=== PATIENT | male | born 1965 | race Caucasian/White ===

== ENCOUNTER 2020-05-05 09:46 | Outpatient (CLI) | payer OTHER, SELFPAY ==
--- NOTE | ~2020-05-05 | XR_ITS ---
EXAMINATION: XR foot LT min 3V DATE: 05/05/2020 10:08 INDICATION: 2 months of left heel pain with walking TECHNIQUE: Dorsoplantar, two oblique and lateral views of the left foot were obtained. COMPARISON: None. FINDINGS: Bone alignment is normal. No fracture. Mild osteoarthritis at the first metatarsophalangeal joint. Re maining joint spaces are normal. No cortical erosions or periosteal reaction. Small to moderate-sized plantar calcaneal spur. Soft tissues are unremarkable. No left ankle joint effusion. IMPRESSION: 1. Small to moderate-sized plantar calcaneal spur. 2. Mild osteoarthritis at the first metatarsophalangeal joint. Reviewed, dictated and finalized at location A.
== END 2020-05-05 09:47 | disposition home or self-care (01) ==
PROVIDERS: PCP Family Medicine; Visit Provider Family Medicine
DX: M79.672 Pain in left foot (principal); M77.32 Calcaneal spur, left foot; M19.072 Primary osteoarthritis, left ankle and foot
CPT/HCPCS: 73630

== ENCOUNTER 2020-07-14 07:03 | Outpatient (CLI) | payer OTHER, SELFPAY ==
--- NOTE | ~2020-07-14 | XR_ITS ---
EXAMINATION: XR shoulder RT min 2V INDICATION: Right shoulder pain TECHNIQUE: Four views of the right shoulder are submitted. COMPARISON: None FINDINGS: Normal alignment. No fracture. There is mild glenohumeral and acromioclavicular joint osteo arthritis. Soft tissues are unremarkable. IMPRESSION: 1. No acute osseous abnormality. Reviewed, dictated and finalized at location A. INATION CLERK
--- NOTE | ~2020-07-14 | XR_ITS ---
EXAMINATION: XR knee RT min 4V DATE: 07/14/2020 07:37 INDICATION: Right knee pain TECHNIQUE: Four views of the right knee were obtained. COMPARISON: 06/14/2004 FINDINGS: Alignment is normal. No fracture or osteochondral lesion. Joint spaces are normal with no e rosions. There is subtle chondrocalcinosis of the menisci. Soft tissues are unremarkable. IMPRESSION: 1. Subtle chondrocalcinosis of the menisci without acute osseous abnormality. Reviewed, dictated and finalized at location A. WORK FEEDER
--- NOTE | ~2020-07-14 | XR_ITS ---
EXAMINATION: XR knee LT min 4V DATE: 07/14/2020 07:37 INDICATION: Left knee pain TECHNIQUE: Four views of the left knee were obtained. COMPARISON: None. FINDINGS: Alignment is normal. No fracture or osteochondral lesion. Joint spaces are normal with no e rosions. No joint effusion/synovitis. Soft tissues are unremarkable. IMPRESSION: 1. No acute osseous abnormality. Reviewed, dictated and finalized at location A. ER/WAITRESS TAVERN
== END 2020-07-14 07:04 | disposition home or self-care (01) ==
LOC: ANHIMG 07:09
PROVIDERS: PCP Family Medicine; Visit Provider Family Medicine
DX: M25.511 Pain in right shoulder (principal); M25.561 Pain in right knee; M25.562 Pain in left knee; M11.261 Other chondrocalcinosis, right knee
CPT/HCPCS: 73030; 73564

== ENCOUNTER 2020-09-13 16:30 | Outpatient (CLI) | payer OTHER, SELFPAY | END 2020-09-13 16:31 | disposition home or self-care (01) | LOC: ANHCOVIDVC 16:30 | PROVIDERS: PCP Family Medicine | DX: Z23 Encounter for immunization (principal) | CPT/HCPCS: 0001A; 91300 ==

== ENCOUNTER 2020-10-04 16:32 | Outpatient (CLI) | payer OTHER, SELFPAY | END 2020-10-04 16:33 | disposition home or self-care (01) | LOC: ANHCOVIDVC 16:32 | PROVIDERS: PCP Family Medicine | DX: Z23 Encounter for immunization (principal) | CPT/HCPCS: 0002A; 91300 ==

== ENCOUNTER 2024-02-27 07:12 | Outpatient (CLI) | payer OTHER, SELFPAY ==
[2024-02-27 07:37] LABS: Alanine Aminotransferase 42 U/L (6-50); Albumin Level 4.7 g/dL (3.5-5.1); Alkaline Phosphatase 50 U/L (38-126); Anion Gap 8 mmol/L (4-12); Aspartate Amino Transferase 54 U/L (17-59); Bilirubin,Total 0.9 mg/dL (0.2-1.3); Blood Urea Nitrogen 22 mg/dL (9-20); Calcium 9.5 mg/dL (8.4-10.2); Carbon Dioxide 30 mmol/L (22-30); Chloride 98 mmol/L (98-107); Cholesterol 146 mg/dL (0-200); Estimated Glomerular Filt Rate > 60; Glucose 113 mg/dL (65-110); HDL Direct 45 mg/dL; Potassium 4.2 mmol/L (3.4-5.0); Sodium 136 mmol/L (137-145); Triglycerides 71 mg/dL (<150)
[2024-02-27 07:49] LABS: LDL Cholesterol Direct 76 mg/dL
[2024-02-27 08:16] LABS: Free T4 Free Thyroxine 1.29 ng/mL (0.78-2.19)
== END 2024-02-27 07:13 | disposition home or self-care (01) ==
PROVIDERS: PCP Family Medicine; Visit Provider Family Medicine
DX: E03.9 Hypothyroidism, unspecified (principal); E78.00 Pure hypercholesterolemia, unspecified
CPT/HCPCS: 36415; 80053; 80061; 84439; 84443

== ENCOUNTER 2024-08-27 06:42 | Outpatient (CLI) | payer OTHER, SELFPAY ==
--- OUTSIDE RECORDS SUMMARY | 2024-08-27 06:44 | XMS_ITS | Referral Summary ---
Author Organization [facility] [email or web address] Address [address] [place] [address] Care Team Providers Care Lithographer Apprentice Name Role Phone Josh Ibrahim MD Primary Care Provider [phone] Source Comments [facility] [email or web address],non-owned Affiliates and Associated Physician Practices is amultiple site organization consisting of ambulatory clinics and hospital sitesin [place], [place], [place] and [place]. This disclosure is being madepursuant to the Care Everywhere program and may not contain all information available regarding this patient. Last updated 18.[facility] [email or web address] Medications * Be aware that medications may not be up to date on this document. Alwaysverify current medications with the patient. Medication Sig Dispensed Refills Start Date End Date Status lifitegrast (XIIDRA) 5 % opthalmic solution 3 03/12/2016 Acti ve Aspirin (NOE ADVANCED ASPIRIN EX ST) 500 MG Take 1 tablet by mouth Every Morning. 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 Pulse 69 06/09/2016 11:03 AM BRIM POUNCING MACHINE OPERATOR Temperature 36.4 C (97.6 F) 06/09/2016 11:03 AM BRIM POUNCING MACHINE OPERATOR Respiratory Rate 16 06/09/2016 11:03 AM BRIM POUNCING MACHINE OPERATOR Oxygen Saturation 100% 05/06/2016 12:14 PM CDT Inhaled Oxygen Concentration - - Weight 88.5 kg (195 lb) 06/09/2016 11:03 AM BRIM POUNCING MACHINE OPERATOR Height 177.8 cm (5' 10 ) 06/09/2016 11:03 AM BRIM POUNCING MACHINE OPERATOR Body Mass Index 27.98 06/09/2016 11:03 AM BRIM POUNCING MACHINE OPERATOR Plan of Treatment Not on file Procedures Procedure Name Priority Date/Time Associated Diagnosis Comments HEPATITIS C ANTIBODY Routine 2014 10:48 AM CDT from Last 3 Months or Most Recently Relevant to Health Maintenance Results * HEPATITIS C ANTIBODY (2014 10:48 AM CDT) [facility]: [facility] C Antibody screen indicates no serologic evidence of past or current infection with Hepatitis C Virus. Patients with unexplained liver disease who are immunocompromised or suspected of having acute Hepatitis C infection may benefit from Nucleic Acid Test (BLAYNE) for Hepatitis C Viral RNA to confirm Hepatitis C status. Blood specimen (specimen) BLOOD SPECIMEN / Unknown 2014 10:48 AM CDT 2014 11:37 AM CDT Aaron Hooper MD LAB - CHEMISTRY [facility] Organization Address City/State/ZIP Co de Phone Number [address] [phone] from Last 3 Months or Most Recently Relevant to Health Maintenance Care Teams Lithographer Apprentice Relationship Specialty Start Date End Date Josh Ibrahim MD PCP - General 05/04/14
--- OUTSIDE RECORDS SUMMARY | 2024-08-27 06:44 | XMS_ITS | Clinical Summary ---
Author Organization [facility] [employer] Address [address] [place] [address] Care Team Providers Care Electrical Products Engineer Name Role Phone Josh Ibrahim MD Primary Care Provider [phone] Source Comments [facility] [employer],non-owned Affiliates and Associated Physician Practices is amultiple site organization consisting of ambulatory clinics and hospital sitesin [place], [place], [place] and [place]. This disclosure is being madepursuant to the Care Everywhere program and may not contain all information available regarding this patient. Last updated 18.[facility] [employer] Medications * Be aware that medications may [...] Abnormal levels of other serum enzymes 4 Family History Medical History Relation Name Comments None Known Father Status: Alive None Known Mother Status: Alive Relation Name Status Comments Father Mother Social History Tobacco Use Types Packs/Day Years [...] Comments Blood Pressure 118/75 06/09/2016 11:03 AM DATA PROCESSING CLERK Pulse 69 06/09/2016 11:03 AM DATA PROCESSING CLERK Temperature 36.4 C (97.6 F) 06/09/2016 11:03 AM DATA PROCESSING CLERK Respiratory Rate 16 06/09/2016 11:03 AM DATA PROCESSING CLERK Oxygen Saturation 100% 05/06/2016 12:14 PM CDT Inhaled Oxygen Concentration - - Weight 88.5 kg (195 lb) 06/09/2016 11:03 AM DATA PROCESSING CLERK Height 177.8 cm (5' 10 ) 06/09/2016 11:03 AM DATA PROCESSING CLERK Body Mass Index 27.98 06/09/2016 11:03 AM DATA PROCESSING CLERK Plan of Treatment Health Maintenance Due Date Last Done Comments COLOGUARD (AGES 45-75) - COL ON CA SCREENING 1967 COLON MONITORING 1967 COLONOSCOPY - COLON CA SCREENING 1967 CT COLONOGRAPHY - COLON CA SCREENING 1967 Colorectal Cancer Screening 1967 FIT - COLON CA SCREENING 1967 FLEX SIG - COLON CA SCREENING 1967 LIPID TESTING 1967 HIV SCREENING 1982 DTAP/TDAP/TD VACCINES (1 - Tdap) 1986 HEPATITIS B VACCINE (1 of 3 - 19+ 3-dose series) 1986 PNEUMOCOCCAL VACCINE 50+ (1 of 1 - PCV) 2017 ZOSTER VACCINE (1 of 2) 2017 COVID-19 VACCINE ( - 2023-2 5 season) 2024 INFLUENZA VACCINE (#1) 2024 DEPRESSION SCREENING 07/13/2024 HEPATITIS C SCREENING Completed 2014 HIB VACCINE Aged Out No longer eligi ble based on patient's age to complete this topic HPV VACCINE Aged Out No longer eligi ble based on patient's age to complete this topic MENINGOCOCCAL (Group B) VACCINE Aged Out No longer eligible based on patient's age to complete this topic MENINGOCOCCAL VACCINE Aged Out No ivette elisabeth eligible based on patient's age to complete this topic PNEUMOCOCCAL VACCINE Aged Out No long er eligible based on patient's age to complete this topic Procedures Procedure Name Priority Date/Time Associated Diagnosis Comments HEPATITIS C ANTIBODY Routine 2014 10:48 AM CDT from Last 3 Months or Most Recently Relevant to Health Maintenance Results * HEPATITIS C ANTIBODY (2014 10:48 AM CDT) Hepatitis C Antibody Non-react teddy Non-reac tive [facility] Comment: Hepatitis C Antibody screen indicates no [...] Hooper MD LAB - CHEMISTRY [facility] Organization Address City/State/ZIP Co de Phone Number [facility] [address] [phone] from Last 3 Months or Most Recently Relevant to Health Maintenance Care Teams Electrical Products Engineer Relationship Specialty Start Date End Date Josh Ibrahim MD PCP - General 05/04/14
--- OUTSIDE RECORDS SUMMARY | 2024-08-27 06:44 | XMS_ITS | Patient Health Summary ---
Author Organization [facility] [email or web address] Address [address] [place] [address] Care Team Providers Care Layer Off Name Role Phone Josh Ibrahim MD Primary Care Provider [phone] Note from [facility],non-owned Affiliates and Associated Physician Practices is amultiple site organization consisting of ambulatory clinics and hospital sitesin [place], [place], [place] and [place]. This disclosure is being madepursuant to the Care Everywhere program and may not contain all information available regarding this patient. Last updated 18.[facility] [email or web address] Medications * Be aware that medications may not be up to date on this document. Alwaysverify current medications with the patient. * lifitegrast (XIIDRA) 5 % opthalmic solution(Started 03/12/2016) 3 refills left * Aspirin (NOE ADVANCED ASPIRIN EX ST) 500 MG(Started 06/09/2016) Take 1 tablet by mouth Every Morning. Active Problems Problem Noted Date Diagnosed Date [...] Comments Blood Pressure 118/75 06/09/2016 11:03 AM PROFILER Pulse 69 06/09/2016 11:03 AM PROFILER Temperature 36.4 C (97.6 F) 06/09/2016 11:03 AM PROFILER Respiratory Rate 16 06/09/2016 11:03 AM PROFILER Oxygen Saturation 100% 05/06/2016 12:14 PM CDT Inhaled Oxygen Concentration - - Weight 88.5 kg (195 lb) 06/09/2016 11:03 AM PROFILER Height 177.8 cm (5' 10 ) 06/09/2016 11:03 AM PROFILER Body Mass Index 27.98 06/09/2016 11:03 AM PROFILER Procedures * PATHOLOGY TISSUE(Performed 05/06/2016) * COMPREHENSIVE METABOLIC PANEL(Performed 04/19/2016) * CBC W AUTO DIFFERENTIAL(Performed 04/19/2016) * COMPREHENSIVE METABOLIC PANEL(Performed 10/23/2015) * PT-INR [facility](Performed 10/23/2015) * CBC W AUTO DIFFERENTIAL(Performed 10/23/2015) * COMPREHENSIVE METABOLIC PANEL(Performed 12/30/2014) * [id number] BLOOD PHENOTYPING PANEL(Performed 2014) * ENDOMYSIAL ANTIBODY IGA(Performed 2014) * TISSUE TRANSGLUTAMINASE AB IGA(Performed 2014) * MITOCHONDRIAL ANTIBODY SCREEN(Performed 2014) * SMOOTH MUSCLE ANTIBODY(Performed 2014) * MARQUIS BLOOD SCREEN(Performed 2014) * HEPATITIS A ANTIBODY(Performed 2014) * FERRITIN(Performed 2014) * COMPREHENSIVE METABOLIC PANEL(Performed 2014) * TRANSFERRIN(Performed 2014) * IRON BLOOD(Performed 2014) * HEPATITIS C ANTIBODY(Performed 2014) * HEPATITIS B SURFACE ANTIGEN W RFLX CONFIRMATION(Performed 2014) * HEPATITIS B SURFACE ANTIBODY(Performed 2014) * HEPATITIS B CORE ANTIBODY TOTAL(Performed 2014) * [id number] BLOOD(Performed 2014) * CERULOPLASMIN(Performed 2014) * PT-INR [facility](Performed 2014) * CBC W AUTO DIFFERENTIAL(Performed 2014) * CBC W AUTO DIFFERENTIAL(Performed 2014) Results * PATHOLOGY TISSUE (05/06/2016 10:11 AM CDT) Surgical Pathology Tissue ACCESSION No: [id number] CLINICAL HISTORY: Elevated liver enzymes. Recent ALT 100, AST 119, AlkP 42, Tbili 0.4. Remote history of ethanol. BMI 27.8, takes a statin. OPERATIVE PROCEDURE: Liver biopsy. FINAL DIAGNOSIS: LIVER, NEEDLE CORE BIOPSY: - NO PATHOLOGIC DIAGNOSIS (6 TRIADS) GROSS DESCRIPTION: The specimen is received fixed in formalin in one container, labeled with the patient's name, Everardo Jimenez , and liver bx and consists of one brown-jurado core of soft tissue measuring 2.0 cm in length x 0.1 cm in diameter. The specimen is submitted in toto in cassette A1. MNR for NSK/ls MICROSCOPIC DESCRIPTION: The specimen consists of 1 liver core containing 6 portal tracts. There is minimal nonspecific mixed portal inflammation. No significant bile duct injury or ductal loss is identified. There is minimal macrovesicular steatosis (<1%). No significant lobular inflammation is identified.. Trichrome and reticulin are unremarkable, showing no significant fibrosis. Pas-D is negative for pdlrt-0-poczjiedsdz globules. Iron stain shows mild (1+) iron in hepatocytes and some iron in macrophages. Overall, the hepatic tissue is essentially normal with histologic findings that are very mild, focal and nonspecific. Though with only one core of tissue containing <10 portal tracts, the etiology of the elevated AST and ALT may not be represented in this biopsy. Clinical correlation is needed. The performance characteristics of all immunohistochemical and indirect immunofluorescence stains (if any) cited in this report were determined by the [facility]opathology Laboratory of [facility]. Some of these tests were developed by our own laboratory and have not been cleared or approved by the US Food and Drug Administration. The FDA does not require this test to go through premarket FDA review. These tests are used for clinical purposes. They should not be regarded as investigational or for research. This laboratory is certified under the Clinical Laboratory Improvement Amendments (CLIA) as qualified to perform high complexity clinical laboratory testing. This case has been personally reviewed and interpreted by the attending (teaching) pathologist. Final Diagnosis performed by Patricia Flores MD. Electronically signed 05/12/2016 [facility] ([facility]U[place]INDA) Other (qualifier value) 05/06/2016 10:11 AM CDT 05/06/2016 11:[address] [facility] (YUNI) - 05/12/2016 1:54 PM CDT Patient Active Problem List: Elevated liver enzymes PRE-OP DIAGNOSIS: elevated liver function OPERATIVE PROCEDURE / FINDINGS: Procedure(s) with comments: LIVER BIOPSY - Liver Biopsy POST-OP DIAGNOSIS: * No post-op diagnosis entered * Collection Date->05/06/16 Collection Time->10:11 AM Specimen A->Liver elevated liver enzymes, possible barber needs evalauation Aaron Hooper MD LAB - PATHOLOGY/CYTO LOGY ORDERABLES [facility] (MARIALUIS[place]ANNER) * (ABNORMAL) CBC W AUTO DIFFERENTIAL (04/19/2016 7:37 AM CDT) Only the most recent of4 resultswithin the time period is included. WBC 4.2 3.8 - 10.8 Thousand/u L [facility] ([facility]) RBC 3.47(L) 4.20 - 5.80 Million/uL [facility] ([facility]) Hemoglobin 11.5(L) 13.2 - 17.1 g/dL [facility] ([facility]) Hematocrit 34.7(L) 38.5 - 50.0 % [facility] ([facility]) MCV 99.8 80.0 - 100.0 fL [facility] ([facility]) MCH 33.1(H) 27.0 - 33.0 pg [facility] ([facility]) MCHC 33.2 32.0 - 36.0 g/dL [facility] ([facility]) RDW-CV 14.9 11.0 - 15.0 % [facility] ([facility]) Platelet 270 140 - 400 Thousand/u L [facility] ([facility]) MPV 7.7 7.5 - 11.5 fL [facility] ([facility]) Neutrophils Absolute 2,339 1,500 - 7,800 cells/uL [facility] ([facility]) Lymphocyte Absolute Manual 1,428 850 - 3,900 cells/uL [facility] ([facility]) Monocytes Absolute 302 200 - 950 cells/uL [facility] ([facility]) Eosinophils Absolute 113 15 - 500 cells/uL [facility] ([facility]) Basophil Absolute Manual 17 0 - 200 cells/uL [facility] ([facility]) Neutrophils % 55.7 % [facility] ([facility]) Lymphocytes % 34.0 % [facility]) Monocytes % 7.2 % [facility]) Eosinophils % 2.7 % [facility]) Basophil % 0.4 % [facility] ([facility]) Comment: REPORT COMMENT: FASTING:YES Test Performed at: [facility] [id number] [place] [address] YAW RENE DO,MPH 04/19/2016 7:37 AM CDT 04/19/2016 7:38 AM CDT Aaron Hooper MD LAB - HEMATOLOGY ORD ERABLES [facility] ([facility]) * (ABNORMAL) COMPREHENSIVE METABOLIC PANEL (04/19/2016 7:37 AM CDT) Only the most recent of4 resultswithin the time period is included. Glucose 104(H) 65 - 99 mg/dL [facility] ([facility]) Comment: Fasting reference interval BUN 22 7 - 25 mg/dL [facility] ([facility]) Creatinine 1.26 0.60 - 1.35 mg/dL [facility] ([facility]) eGFR non- 67 > OR = 60 mL/min/1. 73m2 [facility] ([facility]) eGFR 78 > OR = 60 mL/min/1. 73m2 [facility] ([facility]) BUN/Creatinine Ratio NOT APPLICABLE 6 - 22 (calc) [facility] ([facility]) Sodium 140 135 - 146 mmol/L [facility] ([facility]) Potassium 4.1 3.5 - 5.3 mmol/L [facility] ([facility]) Chloride 101 98 - 110 mmol/L [facility] ([facility]) CO2 28 20 - 31 mmol/L [facility] ([facility]) Calcium 10.1 8.6 - 10.3 mg/dL [facility] ([facility]) Protein Total 7.3 6.1 - 8.1 g/dL [facility] ([facility]) Albumin 5.1 3.6 - 5.1 g/dL [facility] ([facility]) Globulin 2.2 1.9 - 3.7 g/dL (calc) [facility] ([facility]) Albumin/Globuli n Ratio 2.3 1.0 - 2.5 (calc) [facility] ([facility]) Bilirubin Total 0.4 0.2 - 1.2 mg/dL [facility] ([facility]) Alkaline Phosphatase 42 40 - 115 U/L [facility] ([facility]) AST 119(H) 10 - 40 U/L [facility] ([facility]) ALT 100(H) 9 - 46 U/L [facility] ([facility]) Comment: REPORT COMMENT: FASTING:YES Test Performed at: [facility] [employer] [address] [place] [address] YAW RENE DO,MPH 04/19/2016 7:37 AM CDT 04/19/2016 7:38 AM CDT Aaron Hooper MD LAB - CHEMISTRY DEEPTHI MERCADO Performing Organization Address [facility] Co de Phone Number [facility] ([facility]) * PT-INR [facility] (10/23/2015 2:10 PM CDT) Only the most recent of2 resultswithin the time period is included. Pathologist [facility] INR 1.0 [facility] ([facility]) Comment: Reference Range 0.9-1.1 Moderate-intensity Warfarin Therapy 2.0-3.0 Higher-intensity Warfarin Therapy 3.0-4.0 PT 10.9 9.0 - 11.5 sec [facility] ([facility]) Comment: For more information on this test, go to: http://education.[employer]/faq/PHX982 REPORT COMMENT: FASTING:NO Test Performed at: [facility] [id number] [place] [address] YAW RENE DO,MPH 10/23/2015 2:10 PM CDT 10/23/2015 2:10 PM CDT Aaron Hooper MD LAB - COAGULATION OR DERABLES Performing Organization Address [facility] Co de Phone Number [facility] ([facility]) * MARQUIS BLOOD SCREEN (2014 10:48 AM CDT) Pathologist [facility] MARQUIS None Detected None Detected [facility] Venous blood specimen (specimen) 2014 10:48 AM CDT 2014 11:37 AM CDT Aaron Hooper MD LAB - CHEMISTRY DEEPTHI MERCADO Performing Organization Address [facility]/ZIP Co de Phone Number [facility] [address] [phone] * MITOCHONDRIAL ANTIBODY SCREEN (2014 10:48 AM CDT) Pathologist [facility] Mitochondrial M2 Antibody 3.8 0.0 - 20.0 Units [facility] Comment: Mitochondrial M2 Antibody Numeric Result Interpretation: <20.1 Units: Negative 20.1 - 24.9 Units: Equivocal >24.9 Units: Positive Blood specimen (specimen) BLOOD SPECIMEN / Unknown 2014 10:48 AM CDT 2014 11:37 AM CDT Aaron Hooper MD LAB - CHEMISTRY ORDE ROGELIO [address] [phone] * TISSUE TRANSGLUTAMINASE AB IGA (2014 10:48 AM CDT) [facility] TTG Antibody IgA <2 0 - 3 U/mL [facility]) Comment: Negative 0 - 3 Weak Positive 4 - 10 Positive >10 Tissue Transglutaminase (tTG) has been identified as the endomysial antigen. Studies have demonstr- ated that endomysial IgA antibodies have over 99% specificity for gluten sensitive enteropathy. Blood specimen (specimen) BLOOD SPECIMEN / Unknown 2014 10:48 AM CDT 2014 11:37 AM CDT Narrative [facility] ([facility]) - 05/05/2014 1:20 PM CDT Performed at: [address] [place] [id number] Pan Pusher: Corona Fam PhD, Phone: [phone] Aaron Hooper MD LAB - SEROLOGY ORDER FILI [facility]) * GUWYY-4-UOVBSKKUUUR BLOOD PHENOTYPING PANEL (2014 10:48 AM CDT) [facility] Cnycb-4-Jqarovxjmp n 94 90 - 200 mg/dL [facility]) Phenotype (PI) MS [facility] ([facility]) Comment: Phenotype Population A-1-AT Concentration* Incidence % % of MM Ref. Range Mean MM 86.5% 100% (90-200) 145 MS 8.0% 81% (73-162) 118 MZ 3.9% 60% (54-120) 87 FM 0.4% 97% (87-194) 141 SZ 0.3% 39% (35- 78) 57 SS 0.1% 71% (64-142) 103 ZZ 0.05% 7% ( 6- 14) 10 FS 0.05% 66% (59-132) 96 FZ Unknown Unknown FF Unknown Unknown *A-1-AT concentration in the homozygous MM phenotype is taken as the reference normal. Deficiency in phenotypes is reported relative to this reference. Blood specimen (specimen) BLOOD SPECIMEN / Unknown 2014 10:48 AM CDT 2014 11:37 AM CDT Narrative [facility] [facility] [employer]) - 05/08/2014 3:17 PM CDT Performed at: [address] [id number] Pan Pusher: Corona Fam PhD, Phone: [phone] Performed at: [address] [id number] Pan Pusher: Yaw Hoyos MD, Phone: [phone] Aaron Hooper MD LAB - CHEMISTRY DEEPTHI MERCADO Performing Organization Address City/State/[facility] Co de Phone Number [facility]) * ENDOMYSIAL ANTIBODY IGA (2014 10:48 AM CDT) Endomysial Antibody IgA Negative Negative [facility] ([employer]) Blood specimen (specimen) BLOOD SPECIMEN / Unknown 2014 10:48 AM CDT 2014 11:37 AM CDT Narrative [facility] [facility] [employer]) - 05/05/2014 3:22 PM CDT Performed at: [address] [place] [id number] Pan Pusher: Corona Fam PhD, Phone: [phone] Aaron Hooper MD LAB - CHEMISTRY DEEPTHI MERCADO [facility] ([facility]) * TRANSFERRIN (2014 10:48 AM CDT) Transferrin 319 174 - 382 mg/dL [facility] Transferrin Saturation % 29 16 - 50 % [facility] Blood specimen (specimen) BLOOD SPECIMEN / Unknown 2014 10:48 AM CDT 2014 11:37 AM CDT Aaron Hooper MD LAB - CHEMISTRY DEEPTHI MERCADO Performing Organization Address [facility]/ZIP Co de Phone Number [address] [phone] * CERULOPLASMIN (2014 10:48 AM CDT) Ceruloplasmin 20 20 - 60 mg/dL [facility] Blood specimen (specimen) BLOOD SPECIMEN / Unknown 2014 10:48 AM CDT 2014 11:37 AM CDT Aaron Hooper MD LAB - CHEMISTRY DEEPTHI MERCADO Performing Organization Address [facility]/ZIP Co de Phone Number [address] [phone] * [id number]-3-[id number] BLOOD (2014 10:48 AM CDT) Nryqq-2-Jnakyc ypsin 101 90 - 200 mg/dL [facility] Blood specimen (specimen) BLOOD SPECIMEN / Unknown 2014 10:48 AM CDT 2014 11:37 AM CDT Aaron Hooper MD LAB - CHEMISTRY DEEPTHI MERCADO Performing Organization Address City/[facility]/ZIP Co de Phone Number [address] [phone] * SMOOTH MUSCLE ANTIBODY (2014 10:48 AM CDT) F-Actin Antibody IgG 6.3 0.0 - 19.9 Units [facility] Comment: F-Actin Antibody Numeric Result Interpretation: <20.0 Units: Negative 20.0 - 30.0 Units: Weak Positive >30.0 Units: Moderate to Strong Positive Blood specimen (specimen) BLOOD SPECIMEN / Unknown 2014 10:48 AM CDT 2014 11:37 AM CDT Aaron Hooper MD LAB - SEROLOGY ORDER FILI Performing Organization Address City/[facility]/ZIP Co de Phone Number [address] [phone] * IRON BLOOD (2014 10:48 AM CDT) Pathologist [facility] Iron 117 50 - 175 mcg/dL [facility] Blood specimen (specimen) BLOOD SPECIMEN / Unknown 2014 10:48 AM CDT 2014 11:37 AM CDT Aaron Hooper MD LAB - CHEMISTRY ORDE RABLES Performing Organization Address [facility] Co de Phone Number [address] [phone] * HEPATITIS B SURFACE ANTIBODY (2014 10:48 AM CDT) Pathologist [facility] Hepatitis B Virus Surface Antibody Non-react teddy Non-react teddy [facility] Comment: < 8 mIU/mL Hepatitis B surface Antibody (HBsAb). Nonreactive for HBsAb - individual is considered not immune to Hepatitis B Virus infection. Hepatitis B Surface Antibody Quantitative 0.2 <8.0 mIU/mL [facility] Comment: Hepatitis B Surface Antibody Numeric Result Interpretation: Nonreactive: <8.0 mIU/mL Indeterminate: 8.0 - 12.0 mIU/mL Reactive: >12.0 mIU/mL Blood specimen (specimen) BLOOD SPECIMEN / Unknown 2014 10:48 AM CDT 2014 11:37 AM CDT Aaron Hooper MD LAB - CHEMISTRY DEEPTHI MERCADO [address] [phone] * HEPATITIS B CORE ANTIBODY (2014 10:48 AM CDT) HBc Antibody Total Non-reacti ve Non-reacti ve [facility] Blood specimen (specimen) BLOOD SPECIMEN / Unknown 2014 10:48 AM CDT 2014 11:37 AM CDT Aaron Hooper MD LAB - CHEMISTRY DEEPTHI MERCADO Performing Organization Address [facility]/ZIP Co de Phone Number [address] [phone] * HEPATITIS B SURFACE ANTIGEN W RFLX CONFIRMATION (2014 10:48 AM CDT) Pathologist [facility] Hepatitis B Virus Surface Antigen Non-reacti ve Non-reacti ve [facility] Blood specimen (specimen) BLOOD SPECIMEN / Unknown 2014 10:48 AM CDT 2014 11:37 AM CDT Aaron Hooper MD LAB - CHEMISTRY DEEPTHI MERCADO Performing Organization Address [facility] Co de Phone Number [address] [phone] * HEPATITIS C ANTIBODY (2014 10:48 AM CDT) Hepatitis C Antibody Non-react teddy Non-reac tive [facility] Comment: Hepatitis C Antibody screen indicates no [...] Hooper MD LAB - CHEMISTRY DEEPTHI MERCADO Performing Organization Address City/[facility]/ZIP Co de Phone Number [address] [phone] * HEPATITIS A ANTIBODY (2014 10:48 AM CDT) Hepatitis A Virus Antibody Total Negative Negative [facility] ([facility]) Blood specimen (specimen) 2014 10:48 AM CDT 2014 11:37 AM CDT Narrative [facility] ([facility]) - 05/05/2014 7:21 AM CDT Performed at: [address] [place] [id number] Pan Pusher: Corona Fam PhD, Phone: [phone] Aaron Hooper MD LAB - CHEMISTRY DEEPTHI MERCADO Performing Organization Address [facility]/ZIP Co de Phone Number [facility] ([facility]) * (ABNORMAL) FERRITIN (2014 10:48 AM CDT) Ferritin 383(H) 22 - 275 ng/mL [facility] Blood specimen (specimen) BLOOD SPECIMEN / Unknown 2014 10:48 AM CDT 2014 11:37 AM CDT Aaron Hooper MD LAB - CHEMISTRY DEEPTHI MERCADO Performing Organization Address City/[facility]/ZIP Co de Phone Number [address] [phone] Care Teams Layer Off Relationship Specialty Start Date End Date Josh Ibrahim MD PCP - General 05/04/14
[2024-08-27 07:32] LABS: Alanine Aminotransferase 49 U/L (6-50); Albumin Level 4.7 g/dL (3.5-5.1); Alkaline Phosphatase 54 U/L (38-126); Anion Gap 9 mmol/L (4-12); Aspartate Amino Transferase 45 U/L (17-59); Bilirubin,Total 0.7 mg/dL (0.2-1.3); Blood Urea Nitrogen 20 mg/dL (9-20); Calcium 9.6 mg/dL (8.4-10.2); Carbon Dioxide 29 mmol/L (22-30); Chloride 101 mmol/L (98-107); Cholesterol 176 mg/dL (0-200); Estimated Glomerular Filt Rate > 60; Glucose 99 mg/dL (65-110); HDL Direct 43 mg/dL; Potassium 4.1 mmol/L (3.4-5.0); Sodium 139 mmol/L (137-145); Triglycerides 98 mg/dL (<150)
[2024-08-27 07:33] LABS: Hemoglobin A1C 5.3 % (<5.7)
[2024-08-27 07:43] LABS: LDL Cholesterol Direct 108 mg/dL
[2024-08-27 09:35] LABS: Free T4 Free Thyroxine Reflex 1.06 ng/dL (0.78-2.19)
[2024-08-27 10:23] LABS: Total Triiodothyronine (T3) 1.33 NG/ML (0.97-1.69)
== END 2024-08-27 06:43 | disposition home or self-care (01) ==
LOC: ANHLAB 06:43
PROVIDERS: PCP Family Medicine; Visit Provider Family Medicine
DX: E78.00 Pure hypercholesterolemia, unspecified (principal); R73.01 Impaired fasting glucose; E03.9 Hypothyroidism, unspecified
CPT/HCPCS: 36415; 80053; 80061; 83036; 84439; 84443; 84480

== ENCOUNTER 2025-03-04 06:33 | Outpatient (CLI) | payer OTHER, SELFPAY ==
[2025-03-04 08:00] LABS: Hemoglobin A1C 5.0 % (<5.7)
[2025-03-04 08:16] LABS: Alanine Aminotransferase 38 U/L (6-50); Albumin Level 4.5 g/dL (3.5-5.1); Alkaline Phosphatase 49 U/L (38-126); Anion Gap 6 mmol/L (4-12); Aspartate Amino Transferase 43 U/L (17-59); Bilirubin,Total 0.6 mg/dL (0.2-1.3); Blood Urea Nitrogen 21 mg/dL (9-20); Calcium 9.4 mg/dL (8.4-10.2); Carbon Dioxide 27 mmol/L (22-30); Chloride 104 mmol/L (98-107); Cholesterol 132 mg/dL (0-200); Estimated Glomerular Filt Rate > 60; Glucose 110 mg/dL (65-110); HDL Direct 40 mg/dL; Potassium 4.4 mmol/L (3.4-5.0); Sodium 137 mmol/L (137-145); Total Protein 7.5 g/dL (6.3-8.2); Triglycerides 58 mg/dL (<150)
[2025-03-04 08:29] LABS: Free T4 Free Thyroxine 1.34 ng/dL (0.78-2.19)
[2025-03-04 08:52] LABS: Thyroid Stimulating Hormone 0.976 uIU/mL (0.465-4.680)
== END 2025-03-04 06:34 | disposition home or self-care (01) ==
PROVIDERS: PCP Family Medicine; Visit Provider Family Medicine
DX: E78.00 Pure hypercholesterolemia, unspecified (principal); R73.01 Impaired fasting glucose; E03.9 Hypothyroidism, unspecified
CPT/HCPCS: 36415; 80053; 80061; 83036; 84439; 84443